=== PATIENT | female | born 1990 | race African-American/Black ===

== ENCOUNTER 2024-12-23 10:29 | Emergency (ER) | payer BC, OTHER ==
[2024-12-23] MEDS ORDERED: Metoclopramide HCl 10 MG (2 mL) VIAL ONE (11:34)
[2024-12-23] MEDS ORDERED: Acetaminophen 500 MG TAB ONE (11:34)
[2024-12-23] MEDS ORDERED: Ketorolac Tromethamine 30 MG (1 mL) VIAL ONE (13:48)
== END 2024-12-23 14:00 | disposition home or self-care (01) ==
LOC: CSHERS 10:29
DX: S06.0XAA Concussion with loss of consciousness status unknown, initial encounter (principal); W22.09XA Striking against other stationary object, initial encounter
CPT/HCPCS: 70450; 96365; 96375; J1885; J2765